=== PATIENT | male | born 1965 | race Hispanic/Latino ===

== ENCOUNTER 2021-08-05 01:03 | Emergency (ER) | payer SELFPAY ==
[2021-08-05 04:22] LABS: Absolute Lymphocytes (CBC) 2.5 K/uL (0.7-4.9); Hematocrit 47.7 % (39.6-49.0); Lymphocytes % 23.7 % (15.3-44.8); MPV 8.3 fL (7.6-11.3); RBC Red Blood Cell Count 5.36 M/uL (4.33-5.43)
[2021-08-05 04:40] LABS: Bilirubin Direct 0.1 mg/dL (0-0.2); Bilirubin Total 0.5 mg/dL (0.2-1.0); Potassium 3.7 mmol/L (3.5-5.1); Protein, Total 7.7 g/dL (6.4-8.2)
[2021-08-05 05:19] LABS: Urine Blood Negative (Negative); Urine Glucose Trace (Negative); Urine Protein Trace (Negative); Urine Specific Gravity >=1.030 (1.005-1.030); Urine pH 5.5 (5.0-7.0)
--- NOTE | 2021-08-05 05:50 | ER ---
Nurse's Notes [facility] Name: Timothy Garcia Age: 55 yrs Sex: Male : 1965 Arrival Date: 08/05/2021 Time: 01:10 Bed 25 Private MD: Diagnosis: Diarrhea, unspecified-probable medication reaction;Dizziness and giddiness Presentation: 08/05 01:31 Chief complaint: Patient states: he just started going to the doctor on and bb was started on new meds: metformin, glipizide, losartan-hctz and since then he has been having diarrhea and low blood pressure with light-headedness. Coronavirus screen: At this time, the client does not indicate any symptoms associated with coronavirus-19. Ebola Screen: No symptoms or risks identified at this time. Initial Sepsis Screen: Does the patient meet any 2 criteria? No. Patient's initial sepsis screen is negative. Does the patient have a suspected source of infection? No. Patient's initial sepsis screen is negative. Risk Assessment: Do you want to hurt yourself or someone else? Patient reports no desire to harm self or others. Onset of symptoms was August 01, 2021. 01:31 Method Of Arrival: Ambulatory bb 01:31 Acuity: VERENICE 3 bb Triage Assessment: 01:34 General: Appears in no apparent distress. Behavior is calm, cooperative. Pain: Denies bb pain. Neuro: Level of Consciousness is awake, alert, obeys commands, Oriented to person, place, time, situation. Cardiovascular: Capillary refill < 3 seconds Patient's skin is warm and dry. Respiratory: Airway is patent Respiratory effort is even, unlabored, Respiratory pattern is regular. GI: Reports diarrhea. Derm: Skin is pink, warm \T\ dry. Musculoskeletal: Circulation, motion, and sensation intact. Historical: - Allergies: 01:34 Codeine; bb - Home Meds: 01:34 metfornin [Active]; Glipizide Oral [Active]; losartan-hydrochlorothiazide oral [Active];bb - PMHx: 01:34 Hypertensive disorder; Diabetes mellitus; bb - PSHx: 01:34 None; bb - Immunization history:: Moderna x 3. - Social history:: Smoking status: Patient denies any tobacco usage or history of. Screenin:48 Abuse screen: Denies threats or abuse. Denies injuries from another. Nutritional lg3 screening: No deficits noted. Tuberculosis screening: No symptoms or risk factors identified. Fall Risk None identified. Assessment: 02:48 General: Appears in no apparent distress. comfortable, Behavior is calm, cooperative. lg3 Pain: Denies pain. Neuro: No deficits noted. Buchanan Agitation-Sedation Scale (RASS): 0 - Alert and Calm Level of Consciousness is awake, alert, obeys commands, Oriented to person, place, time, situation. Cardiovascular: No deficits noted. Denies chest pain, shortness of breath. Respiratory: No deficits noted. Airway is patent Trachea midline Respiratory effort is even, unlabored, Respiratory pattern is regular, symmetrical. GI: Reports diarrhea. : No deficits noted. No signs and/or symptoms were reported regarding the genitourinary system. EENT: No deficits noted. No signs and/or symptoms were reported regarding the EENT system. Derm: No deficits noted. No signs and/or symptoms reported regarding the dermatologic system. Skin is intact, is healthy with good turgor, Skin is dry, Skin is pink, warm \T\ dry. Musculoskeletal: No deficits noted. No signs and/or symptoms reported regarding the musculoskeletal system. Circulation, motion, and sensation intact. Capillary refill < 3 seconds, Range of motion: intact in all extremities. 04:40 Reassessment: Patient appears in no apparent distress at this time. No changes from lg3 previously documented assessment. Patient and/or family updated on plan of care and expected duration. Pain level reassessed. Patient is alert, oriented x 3, equal unlabored respirations, skin warm/dry/pink. Patient denies pain at this time. Vital Signs: 01:31 BP 137 / 99; Pulse 111; Resp 16 S; Temp 98.1(O); Pulse Ox 97% ; Weight 77.11 kg (R); bb Height 5 ft. 9 in. (175.26 cm) (R); Pain 0/10; 04:18 BP 134 / 84; Pulse 96; Resp 18; Pulse Ox 99% on R/A; oe 01:31 Body Mass Index 25.10 (77.11 kg, 175.26 cm) bb ED Course: 01:10 Patient arrived in ED. kz 01:34 Triage completed. bb 01:34 Arm band placed on Patient placed in waiting room, Patient notified of wait time. bb 02:42 Estelita Trevino, RN is Primary Nurse. lg3 02:48 Patient has correct armband on for positive identification. Placed in gown. Bed in low lg3 position. Call light in reach. Side rails up X 1. Client placed on continuous cardiac and pulse oximetry monitoring. NIBP monitoring applied. shelter monitor on. Door closed. Noise minimized. Warm blanket given. Family accompanied patient. 03:00 Jhonatan Costello MD is Attending Physician. [facility] 04:25 LFT's Sent. lg3 04:25 Basic Metabolic Panel Sent. lg3 04:25 CBC with Diff Sent. lg3 04:25 Inserted saline lock: 20 gauge in left antecubital area, using aseptic technique. Blood lg3 collected. 06:04 No provider procedures requiring assistance completed. IV discontinued, intact, lg3 bleeding controlled, No redness/swelling at site. Pressure dressing applied. Administered Medications: No medications were administered Outcome: 05:50 Discharge ordered by . [facility] 06:04 Discharged to home ambulatory, with family. lg3 06:04 Condition: stable 06:04 Discharge instructions given to patient, Instructed on discharge instructions. 06:05 Patient left the ED. lg3 Signatures: Yaneth Crespo RN RN Eligio Patricia Lacie, ALYSSA RN [facility] Jhonatan Costello MD MD [facility] Jane Broussard
--- NOTE | 2021-08-05 05:50 | EDPHYS ---
Physician Documentation [facility] Name: Timothy Garcia Age: 55 yrs Sex: Male : 1965 Arrival Date: 08/05/2021 Time: 01:10 Bed 25 Private MD: TENZIN Physician Jhonatan Costello HPI: 08/05 03:55 This 55 yrs old Male presents to ER via Ambulatory with complaints of Blood mh7 Pressure Problem, Diarrhea. 03:55 The patient presents to the emergency department with diarrhea, that is intermittent. mh7 Onset: The symptoms/episode began/occurred 3 day(s) ago. Possible causes: medication. The symptoms are aggravated by nothing. The symptoms are alleviated by nothing. Associated signs and symptoms: Pertinent positives: dizziness, Pertinent negatives: abdominal pain, anorexia, belching, constipation, dysuria, fever, flatulence, GI bleeding, hematuria, nausea, vomiting. Severity of symptoms: At their worst the symptoms were moderate 3 day(s) ago, in the emergency department the symptoms have improved markedly. Started on Metformin, Glipizide, and Losartan 4 days ago and started having diarrhea and dizziness within one day. Denies any other complaints.. Historical: - Allergies: 01:34 Codeine; bb - Home Meds: 01:34 metfornin [Active]; Glipizide Oral [Active]; losartan-hydrochlorothiazide oral [Active];bb - PMHx: 01:34 Hypertensive disorder; Diabetes mellitus; bb - PSHx: 01:34 None; bb - Immunization history:: Moderna x 3. - Social history:: Smoking status: Patient denies any tobacco usage or history of. ROS: 03:55 Constitutional: Negative for fever, chills, and weight loss, Eyes: Negative for injury, mh7 pain, redness, and discharge, ENT: Negative for injury, pain, and discharge, Neck: Negative for injury, pain, and swelling, Cardiovascular: Negative for chest pain, palpitations, and edema, Respiratory: Negative for shortness of breath, cough, wheezing, and pleuritic chest pain, Back: Negative for injury and pain, : Negative for injury, bleeding, discharge, and swelling, MS/Extremity: Negative for injury and deformity, Skin: Negative for injury, rash, and discoloration, Neuro: Negative for headache, weakness, numbness, tingling, and seizure, Psych: Negative for depression, anxiety, suicide ideation, homicidal ideation, and hallucinations, Allergy/Immunology: Negative for hives, rash, and allergies, Endocrine: Negative for neck swelling, polydipsia, polyuria, polyphagia, and marked weight changes, Hematologic/Lymphatic: Negative for swollen nodes, abnormal bleeding, and unusual bruising. Exam: 03:55 Constitutional: This is a well developed, well nourished patient who is awake, alert, mh7 and in no acute distress. Head/Face: Normocephalic, atraumatic. Eyes: Pupils equal round and reactive to light, extra-ocular motions intact. Lids and lashes normal. Conjunctiva and sclera are non-icteric and not injected. Cornea within normal limits. Periorbital areas with no swelling, redness, or edema. Neck: Trachea midline, no thyromegaly or masses palpated, and no cervical lymphadenopathy. Supple, full range of motion without nuchal rigidity, or vertebral point tenderness. No Meningismus. Chest/axilla: Normal chest wall appearance and motion. Nontender with no deformity. No lesions are appreciated. Cardiovascular: Regular rate and rhythm with a normal S1 and S2. No gallops, murmurs, or rubs. Normal PMI, no JVD. No pulse deficits. Respiratory: Lungs have equal breath sounds bilaterally, clear to auscultation and percussion. No rales, rhonchi or wheezes noted. No increased work of breathing, no retractions or nasal flaring. Abdomen/GI: Soft, non-tender, with normal bowel sounds. No distension or tympany. No guarding or rebound. No evidence of tenderness throughout. Back: No spinal tenderness. No costovertebral tenderness. Full range of motion. Skin: Warm, dry with normal turgor. Normal color with no rashes, no lesions, and no evidence of cellulitis. MS/ Extremity: Pulses equal, no cyanosis. Neurovascular intact. Full, normal range of motion. Neuro: Awake and alert, GCS 15, oriented to person, place, time, and situation. Cranial nerves II-XII grossly intact. Motor strength 5/5 in all extremities. Sensory grossly intact. Cerebellar exam normal. Normal gait. Psych: Awake, alert, with orientation to person, place and time. Behavior, mood, and affect are within normal limits. Vital Signs: 01:31 BP 137 / 99; Pulse 111; Resp 16 S; Temp 98.1(O); Pulse Ox 97% ; Weight 77.11 kg (R); bb Height 5 ft. 9 in. (175.26 cm) (R); Pain 0/10; 04:18 BP 134 / 84; Pulse 96; Resp 18; Pulse Ox 99% on R/A; oe 01:31 Body Mass Index 25.10 (77.11 kg, 175.26 cm) bb MDM: 05:48 Differential diagnosis: viral gastroenteritis, gastroenteritis, Medication adverse mh7 reaction. Data reviewed: vital signs, nurses notes, lab test result(s), CBC, electrolytes, urinalysis, EKG. Data interpreted: Pulse oximetry: on room air is 99 %. Interpretation: normal. Counseling: I had a detailed discussion with the patient and/or guardian regarding: the historical points, exam findings, and any diagnostic results supporting the discharge/admit diagnosis, lab results, the need for outpatient follow up, to return to the emergency department if symptoms worsen or persist or if there are any questions or concerns that arise at home. Response to treatment: the patient's symptoms have resolved after treatment, the patient's blood pressure is in an acceptable range, mental status has returned to baseline, the patient no longer shows bradycardia, the patient is not short of breath, the patient is not tachycardic, the patient's pain is gone, the patient's temperature has normalized, the patient is now symptom free, patient is well hydrated. 05:50 Patient medically screened. 08/05 03:58 Order name: CBC with Diff; Complete Time: 04:54 08/05 03:58 Order name: Basic Metabolic Panel; Complete Time: 04:54 08/05 03:58 Order name: LFT's; Complete Time: 04:54 08/05 03:58 Order name: Urine Dipstick-Ancillary (obtain specimen); Complete Time: 05:18 08/05 03:59 Order name: EKG; Complete Time: 03:59 08/05 05:19 Order name: Urine Dipstick-Ancillary; Complete Time: 05:28 EDMS 08/05 03:59 Order name: Saline Lock; Complete Time: 04:25 [facility] 08/05 03:59 Order name: EKG - Nurse/Tech; Complete Time: 04:19 mh7 Administered Medications: No medications were administered Disposition Summary: 08/05/21 05:50 Discharge Ordered Location: Home mh7 Problem: new mh7 Symptoms: have improved mh7 Condition: Stable mh7 Diagnosis - Diarrhea, unspecified - probable medication reaction mh7 - Dizziness and giddiness mh7 Followup: [facility] - With: Private Physician - When: 1 - 2 days - Reason: Worsening of condition, Recheck today's complaints, Continuance of care, Re-evaluation by your physician Discharge Instructions: - Discharge Summary Sheet mh7 - Diarrhea, Adult, [id number] mh7 - Dizziness, [id number] mh7 Forms: - Medication Reconciliation Form 7 - Thank You Letter 7 - Antibiotic Education 7 - Prescription Opioid Use 7 Signatures: Dispatcher [employer] Yaneth Jimenez RN RN bb Holmes, Maurice, MD MD 7 Corrections: (The following items were deleted from the chart) 05:33 05:28 This 55 yrs old Male presents to ER via Ambulatory with complaints of mh7 Blood Pressure Problem, Diarrhea. 7
[2021-08-05 06:11] VITALS: TEMP 98.1
[2021-08-05 06:12] VITALS: BP 134/84; O2SAT 99
--- NOTE | 2021-08-05 08:55 | EKG ---
Test Date: 2021-08-05 Test Time: 04:15:45 [employer] Estimator: LEORA MEASUREMENT RESULTS: Intervals: Rate: 98 MI: 126 QRSD: 90 QT: 350 QTc: 446 [place]: P: 45 MI: 126 QRS: 60 T: 63 INTERPRETIVE STATEMENTS: Normal sinus rhythm Normal ECG No previous ECG available for comparison Electronically Signed On 08-05-21 08:54:17 CDT by Venkat Moore
== END 2021-08-05 06:05 | disposition home or self-care (01) ==
LOC: ER 01:03
DX: R42 Dizziness and giddiness (principal); R19.7 Diarrhea, unspecified; I10 Essential (primary) hypertension; E11.9 Type 2 diabetes mellitus without complications; Z88.5 Allergy status to narcotic agent
CPT/HCPCS: 36415; 80048; 80076; 81003; 85025; 93005; 99284